=== PATIENT | female | born 1960 | race Caucasian/White ===

== ENCOUNTER 2018-02-15 16:57 | Emergency (ER) | payer MEDICARE, MEDICAID ==
[2018-02-15] MEDS ORDERED: methylPREDNISolone Sod Succ/PF 125 MG/2 ML VIAL ONE (17:21)
[2018-02-15 17:50] LABS: INR-International Normal Ratio 1.1; PTT 35.3 SEC (22.9-36.1); Prothrombin Time 13.8 SEC (12.0-14.7)
[2018-02-15 17:52] LABS: #Basophils 0.1 thou/uL (0.0-0.2); #Lymphocytes 1.9 thou/uL (1.20-3.40); #Monocytes 0.8 thou/uL (0.11-0.59); #Neutrophils 4.8 thou/uL (1.40-6.50); %Basophils 1.3 % (0.0-1.0); %Eosinophils 0.1 % (0.0-10.0); %Lymphocytes 24.4 % (21.0-51.0); %Monocytes 10.3 % (0.0-10.0); %Neutrophils 63.8 % (42.0-75.0); Hemoglobin 18.6 g/dL (12.0-16.0); Mean Corpuscular HGB CONC 29.5 g/dL (32.0-36.0); Mean Corpuscular Hemoglobin 30.4 pg (27.0-31.0); Mean Platelet Volume 8.2 fL (7.4-10.4); Platelet Count 206 thou/uL (130-400); RBC Distribution Width 16.5 % (11.5-14.5); Red Blood Cell (RBC) Count 6.12 mill/uL (4.20-5.40); White Blood Cell (WBC) Count 7.6 thou/uL (4.8-10.8)
[2018-02-15] MEDS ORDERED: Albuterol Sulfate 2.5 mg/0.5 ml Neb ONE ×3 (17:55→17:56)
[2018-02-15 17:57] LABS: ALT (SGPT) 16 U/L (8-55); AST (SGOT) 17 U/L (5-34); Albumin 4.1 g/dL (3.5-5.0); Alkaline Phosphatase 66 U/L (40-150); Anion Gap 18 mmol/L (10-20); BUN (Urea Nitrogen) 11 mg/dL (9.8-20.1); Bilirubin, Total 0.6 mg/dL (0.2-1.2); Calc. Creatinine Clearance 0 mL/min (70-130); Calcium 9.1 mg/dL (7.8-10.44); Carbon Dioxide 24 mmol/L (22-29); Chloride 104 mmol/L (98-107); Estimated GFR-MDRD 76; Globulin 3.9 g/dL (2.4-3.5); Glucose 165 mg/dL (70-105); Potassium 4.7 mmol/L (3.5-5.1); Sodium 141 mmol/L (136-145)
[2018-02-15 17:59] LABS: CKMB 1.7 ng/mL (0-6.6); Troponin I 0.029 ng/mL (< 0.028)
[2018-02-15] MEDS ORDERED: Sodium Chloride 0.9% 1,000 ML ONE (18:07)
[2018-02-15 18:21] LABS: D-Dimer Test 0.61 *mcg/mL (0.27-0.43)
--- NOTE | 2018-02-15 18:33 | RAD ---
CHEST ONE VIEW: HISTORY: Dyspnea. COMPARISON: None. FINDINGS: Heart size is markedly enlarged. Abnormal density over the right cardiac border. Layering effusions . Moderate pulmonary edema. No acute osseous abnormality. IMPRESSION: 1. Abnormal contour of the right heart border and cardiomegaly. This may be sequelae of a pericardi al effusion. 2. Small pleural effusion as well as moderate pulmonary edema. POS: [facility]
== END 2018-02-15 19:01 | disposition short-term general hospital (02) ==
LOC: NAV ERS 16:57
DX: J44.1 Chronic obstructive pulmonary disease with (acute) exacerbation (principal); R23.0 Cyanosis; E11.9 Type 2 diabetes mellitus without complications; Z79.4 Long term (current) use of insulin; I10 Essential (primary) hypertension; F17.210 Nicotine dependence, cigarettes, uncomplicated; Z79.899 Other long term (current) drug therapy
CPT/HCPCS: 71045; 80053; 82553; 83605; 83880; 84484; 85025; 85379; 85610; 85730; 87040; 93005; 94640; 94644; 94760; 96374; J2930; J7050; J7611; J7620